=== PATIENT | male | born 1975 | race Caucasian/White ===

== ENCOUNTER 2023-01-02 16:39 | Emergency (ER) | payer OTHER, SELFPAY ==
[2023-01-02 16:49] VITALS: BP 183/102; PULSE 72; RESP 16; TEMP 36.9; O2SAT 100
--- NOTE | 2023-01-02 17:45 | ED.WOUNDLAC ---
HPI - Wound/Laceration General Chief Complaint: Wound/Laceration Stated Complaint: laceration to Left index finger Time Seen by Provider: 01/02/23 16:52 Source: patient and RN notes reviewed Mode of arrival: ambulatory Limitations: no limitations History of Present Illness HPI narrative: Patient presents today with a laceration to his left 2nd finger. It was sustained at home using a chain saw just prior to arrival. Currently rates his pain 4/10. He is not up-to-date on his tetanus vaccine. Denies numbness or tingling. He has tried no [id number] treatment prior to arrival. He is right-side dominant. Related Data Home Medications Medication Instructions Recorded Confirmed cetirizine 5 mg tablet 5 mg PO DAILY 01/02/23 01/02/23 Allergies Allergy/AdvReac Type Severity Reaction Status Date / Time Sulfa (Sulfonamide Allergy Rash Verified 01/02/23 16:49 Antibiotics) Review of Systems Review of Systems: CONSTITUTIONAL: Denies body aches, fever, chills, or sweats. EYES: Denies visual changes, redness, or discharge. ENT: Denies rhinorrhea, congestion, sore throat, or otalgia. CARDIOVASCULAR: Denies chest pain, palpitations, or edema. RESPIRATORY: Denies cough or dyspnea. GASTROINTESTINAL: Denies abdominal pain, nausea, vomiting, or diarrhea. GENITOURINARY: Denies dysuria or hematuria. SKIN: Denies rash, itching. + laceration to left 2nd finger MUSCULOSKELETAL: Denies back pain, joint pain, or myalgia. NEUROLOGIC: Denies headache, numbness, tingling, or weakness. PSYCH: Denies depression or anxiety. PMFSH Comments At time of signature, I have reviewed and agree with nursing past medical, surgical, social and family history unless otherwise noted. Please see nursing chart for further information. There is no relevant family history pertinent to the presenting complaint Exam Narrative: GENERAL: Well-appearing, well-nourished, and in no acute distress. HEAD: Normocephalic, atraumatic. EYES: EOMI. No redness or drainage. Conjunctivae normal. ENT: Mucous membranes pink and moist. NECK: Normal AROM. CHEST: No respiratory distress. EXTREMITIES: Normal range of motion. No edema. SKIN: Warm, dry, no rash. Capillary refill normal. Normal skin turgor. Left 2nd finger: 2 cm full-thickness flap laceration to the mid dorsal aspect of PIP. 2 cm irregular flap laceration to the dorsal aspect of the distal phalanx. 1 cm partial thickness flap laceration to the dorsal aspect of the distal phalanx. Distal sensation intact. Capillary refill normal. Full range of motion of the finger against resistance. Finger nail is not affected. NEURO: No focal deficits. Alert and oriented x3. Gait steady. PSYCH: Normal affect. No signs of depression or anxiety. Course Course Level of Care: Express Care Visit Vital Signs Vital signs: Vital Signs Temperature 98.4 F 01/02/23 16:49 Pulse Rate 72 01/02/23 16:49 Respiratory Rate 16 01/02/23 16:49 Blood Pressure 183/102 H 01/02/23 16:49 Pulse Oximetry 100 01/02/23 16:49 Oxygen Delivery Room Air 01/02/23 16:49 Temperature 98.4 F 01/02/23 16:49 Pulse Rate 72 01/02/23 16:49 Respiratory Rate 16 01/02/23 16:49 Blood Pressure 183/102 H 01/02/23 16:49 Pulse Oximetry 100 01/02/23 16:49 Oxygen Delivery Room Air 01/02/23 16:49 Reviewed. Pt has been instructed to follow up with his PCP regarding his elevated blood pressure today. Procedures Laceration Laceration 1: Date: 01/02/23 Time: 17:45 Site: hand Side (If applicable): left Size (cm): 2 Description: irregular Depth: simple, single layer Amount of anesthesia used (mL): 5 Pre-repair: wound explored and irrigated (And cleansed with wound cleanser) ====== Skin Level ====== Skin layer closed with: nylon Size (cm): 5-0 Number of sutures: 13 Technique: simple, interrupted ====== S
[2023-01-02] MEDS: TETANUS,DIPHTHERIA,AC PERTUSSIS ADULT (0.5 ML) BOOSTRIX IM (17:54)
[2023-01-02 18:09] VITALS: BP 152/95
== END 2023-01-02 18:00 | disposition home or self-care (01) ==
PROVIDERS: Emergency Provider Nurse Practitioner
DX: S61.211A Laceration without foreign body of left index finger without damage to nail, initial encounter (principal); W29.3XXA Contact with powered garden and outdoor hand tools and machinery, initial encounter; Z23 Encounter for immunization
CPT/HCPCS: 12002; 90471; 90715; 99212; G0463